=== PATIENT | female | born 1965 | race Caucasian/White ===

== ENCOUNTER → 2016-07-07 | Outpatient (CLI) | payer BC ==
--- NOTE | 2016-07-07 11:27 | RAD ---
EXAM: DIGITAL SCREEN BILAT W/CAD HISTORY: Routine Screening. COMPARISON: 06/17/2014 Standard mammographic views are obtained of the bilateral breasts. This study was interpreted with the benefit of Computerized Aided Detection (CAD). FINDINGS: The breast parenchyma shows scattered fibroglandular densities. Breast parenchyma level II. There is no definite new suspicious spiculated mass or worrisome new cluster of microcalcifications. IMPRESSION: No definite new suspicious mass. BI-RADS CATEGORY: 1 NEGATIVE RECOMMENDED FOLLOW-UP: 12M 12 MONTH FOLLOW-UP PQRS compliance statement: Patient information was entered into a reminder system with a target due date for the next mammogram. Mammography is a sensitive method for finding small breast cancers, but it does not detect them all and is not a substitute for careful clinical examination. A negative mammogram does not negate a clinically suspicious finding and should not result in delay in biopsying a clinically suspicious abnormality. "Our facility is accredited by the [employer] Mammography Program."
== END | disposition home or self-care (01) ==
LOC: MAMMO 08:03
PROVIDERS: ATTEND Family Medicine
DX: Z12.31 Encounter for screening mammogram for malignant neoplasm of breast (principal)
CPT/HCPCS: G0202; 77067

== ENCOUNTER 2017-03-09 22:24 | Inpatient (IN) | payer BC ==
[~2017-03-09] VITALS: Ht 170.2 cm; Wt 112.6 kg
[2017-03-09] MEDS ORDERED: IV NORMAL SALINE 1000ML BAG 1,000 ML IV ONE (23:00)
[2017-03-09] MEDS ORDERED: fentaNYL PF VIAL 100 MCG/2 ML VIAL IV ONE (23:15)
[2017-03-09] MEDS ORDERED: ONDANSETRON PF 4 MG/2 ML VIAL. IV ONE (23:15)
--- NOTE | 2017-03-09 23:18 | PHYS DOC ---
Past Medical History Past Medical History: Diabetes-Type II, High Cholesterol Past Surgical History: Hysterectomy, Other Additional Past Surgical Histo: five ABD surgeries Alcohol Use: Occasionally Drug Use: None Adult General Chief Complaint Chief Complaint: Congestion HPI HPI Patient is a 51 year old F who presents with right lower chest pain and right upper quadrant abdominal pain. Patient states the pain has been coming going for the past week however for the past 3 hours has been intense. Patient rates pain 10/10. Patient states nothing increases or decreases the pain. Patient denies any vomiting but is nauseous. Patient denies any fevers. Patient denies any diarrhea. Patient denies any other symptoms. Review of Systems Review of Systems GEN: Denies fevers, chills, sweats HEENT: Denies blurred vision, sore throat CV: Right lower chest pain RESP: Denies shortness of air, cough GI: Right upper quadrant pain with nausea NEURO: Denies confusion, dizziness MSK: Denies weakness, joint pain/swelling Current Medications Current Medications Current Medications Medications (Trade) Dose Ordered Sig/Sapna Start Time Stop Time Status Last Admin Dose Admin Fentanyl Citrate (Fentanyl 2ml Vial) 50 mcg 1X ONCE 03/09/17 23:15 03/09/17 23:16 DC 03/09/17 23:29 50 MCG Info (Do NOT chart on this entry -- for MONITORING) 1 each PRN DAILY PRN 03/10/17 02:00 03/12/17 01:59 Iohexol (Omnipaque 300 Mg/ml) 60 ml 1X ONCE 03/10/17 02:00 03/10/17 02:01 DC Ondansetron HCl (Zofran) 4 mg 1X ONCE 03/09/17 23:15 03/09/17 23:16 DC 03/09/17 23:28 4 MG Sodium Chloride 1,000 ml @ 1,000 mls/hr 1X ONCE 03/09/17 23:00 03/09/17 23:59 DC 03/09/17 23:27 1,000 MLS/HR Allergies Allergies Allergies Coded Allergies Type Severity Reaction Last Updated Verified Sulfa (Sulfonamide Antibiotics) Allergy Severe Swelling 03/09/17 Yes Physical Exam Physical Exam GEN.: Moderate distress. Alert and oriented. HEENT: Head is normocephalic, atraumatic NECK: Supple. LUNGS: CTAB. HEART: RRR, S1, S2 present. Peripheral pulses intact ABDOMEN: Soft, right upper quadrant tenderness to palpation, no rebound tenderness, voluntary guarding, no abdominal distention. Positive bowel sounds. EXTREMITIES: Without any cyanosis. NEUROLOGIC: Normal speech, normal tone PSYCHIATRIC: Normal affect, normal mood. SKIN: No ulcerations Current Patient Data Vital Signs Vital Signs Date Time Temp Pulse Resp B/P (MAP) Pulse Ox O2 Delivery O2 Flow Rate FiO2 03/09/17 23:29 16 96 Room Air 03/09/17 22:35 97.5 95 156/93 (114) 97.5 Lab Values Laboratory Tests Test 03/09/17 23:20 03/09/17 23:55 White Blood Count 12.8 x10^3/uL (4.0-11.0) H Red Blood Count 5.01 x10^6/uL (3.50-5.40) Hemoglobin 16.0 g/dL (12.0-15.5) H Hematocrit 47.1 % (36.0-47.0) H Mean Corpuscular Volume 94 fL (79-100) Mean Corpuscular Hemoglobin 32 pg (25-35) Mean Corpuscular Hemoglobin Concent 34 g/dL (31-37) Red Cell Distribution Width 13.0 % (11.5-14.5) Platelet Count 200 x10^3/uL (140-400) Neutrophils (%) (Auto) 59 % (31-73) Lymphocytes (%) (Auto) 28 % (24-48) Monocytes (%) (Auto) 10 % (0-9) H Eosinophils (%) (Auto) 2 % (0-3) Basophils (%) (Auto) 1 % (0-3) Neutrophils # (Auto) 7.5 x10^3uL (1.8-7.7) Lymphocytes # (Auto) 3.6 x10^3/uL (1.0-4.8) Monocytes # (Auto) 1.3 x10^3/uL (0.0-1.1) H Eosinophils # (Auto) 0.2 x10^3/uL (0.0-0.7) Basophils # (Auto) 0.1 x10^3/uL (0.0-0.2) Sodium Level 139 mmol/L (136-145) Potassium Level 3.6 mmol/L (3.5-5.1) Chloride Level 100 mmol/L (98-107) Carbon Dioxide Level 30 mmol/L (21-32) Anion Gap 9 (6-14) Blood Urea Nitrogen 20 mg/dL (7-20) Creatinine 1.0 mg/dL (0.6-1.0) Estimated GFR (Cockcroft-Gault) 58.0 BUN/Creatinine Ratio 20 (6-20) Glucose Level 132 mg/dL (70-99) H Calcium Level 9.7 mg/dL (8.5-10.1) Total Bilirubin 0.3 mg/dL (0.2-1.0) Aspartate Amino Transferase (AST) 19 U/L (15-37) Alanine Aminotransferase (ALT) 27 U/L (14-59) Alkaline Phosphatase 73 U/L (46-116) Troponin I Quantitative < 0.017 ng/mL (0.000-0.055) Total Protein 7.6 g/dL (6.4-8.2) Albumin 3.9 g/dL (3.4-5.0) Albumin/Globulin Ratio 1.1 (1.0-1.7) Lipase 349 U/L (73-393) Urine Collection Type Unknown Urine Color Yellow Urine Clarity Clear Urine pH 6.0 Urine Specific [place] <=1.005 Urine Protein Negative mg/dL (NEG-TRACE) Urine Glucose (UA) Negative mg/dL (NEG) Urine Ketones (Stick) Negative mg/dL (NEG) Urine Blood Negative (NEG) Urine Nitrite Negative (NEG) Urine Bilirubin Negative (NEG) Urine Urobilinogen Dipstick 0.2 mg/dL (0.2 mg/dL) Urine Leukocyte Esterase Negative (NEG) Urine RBC 0 /HPF (0-2) Urine WBC 1-4 /HPF (0-4) Urine Squamous Epithelial Cells Mod /LPF Urine Bacteria Moderate /HPF (0-FEW) Laboratory Tests 03/09/17 23:20 Laboratory Tests 03/09/17 23:20 EKG EKG 2247: EKG shows normal sinus rhythm rate of 86 no STEMI[] Radiology/Procedures Radiology/Procedures Ultrasound right upper quadrant: IMPRESSION: Probable fatty liver. At the central aspect left hepatic lobe there is a 3.5 cm oval nonshadowing hypoechoic focus, this could represent a region of focal fatty sparing versus a mass lesion. This could be definitively determined by outpatient MR imaging.[] CTA chest: IMPRESSION: No acute process. No pulmonary artery embolus. Left coronary calcified plaque. Chest x-ray NAD Course & Med Decision Making Course & Med Decision Making Pertinent Labs and Imaging studies reviewed. (See chart for details) ED course: Patient was seen and examined emergency room abdominal workup with an ultrasound right upper quadrant with troponin and EKG were ordered 0200: Patient's ultrasound or upper quadrant unremarkable we'll obtain a CTA of the chest 0322: Updated patient on CTA of the chest results and given the plaques in the left coronary will admit and trend her troponins and EKGs 0325: Discussed CC/HP/PMH with Dr. Anne and recommends admit [] MDM: After reviewing the chart, CC/HPI/PMH, physical exam, [lab results], [ radiological results], I do not believe the patient having a STEMI, PE, thoracic aortic dissection however the CTA of the chest shows plaques in the coronary arteries therefore will admit the patient for further cardiac workup. [] Dragon Disclaimer Dragon Disclaimer This electronic medical record was generated, in whole or in part, using a voice recognition dictation system. Departure Departure Impression: Primary Impression: Chest pain Additional Impression: CAD (coronary artery disease) Disposition: ADMITTED INPATIENT Admitting Physician: Tina Anne Condition: IMPROVED Referrals: TINA ANNE MD (PCP) Problem Qualifiers TASHA MARTINEZ DO Mar 09, 2017 23:18
[2017-03-09 23:25] LABS: BASO # 0.1 x10^3/uL (0.0-0.2); BASO % 1 % (0-3); EOS % 2 % (0-3); HEMATOCRIT 47.1 % (36.0-47.0); LYMPH # 3.6 x10^3/uL (1.0-4.8); LYMPH % 28 % (24-48); MEAN CORPUSCULAR HEMOGLOBIN 32 pg (25-35); MEAN CORPUSCULAR HGB CONC 34 g/dL (31-37); MEAN CORPUSCULAR VOLUME 94 fL (79-100); MONO % 10 % (0-9); NEUT % 59 % (31-73); PLATELET COUNT 200 x10^3/uL (140-400); RED BLOOD COUNT 5.01 x10^6/uL (3.50-5.40); WHITE BLOOD COUNT 12.8 x10^3/uL (4.0-11.0)
[2017-03-09 23:34] LABS: CALCIUM 9.7 mg/dL (8.5-10.1); POTASSIUM 3.6 mmol/L (3.5-5.1)
[2017-03-09 23:41] LABS: ALBUMIN 3.9 g/dL (3.4-5.0); ALBUMIN/GLOBULIN RATIO 1.1 (1.0-1.7); TOTAL BILIRUBIN 0.3 mg/dL (0.2-1.0); TOTAL PROTEIN 7.6 g/dL (6.4-8.2)
[2017-03-10 00:05] LABS: BILIRUBIN,URINE NEGATIVE (NEG); GLUCOSE,URINE NEGATIVE (NEG); NITRITE,URINE NEGATIVE (NEG); PROTEIN,URINE NEGATIVE (NEG-TRACE); UROBILINOGEN,URINE 0.2 mg/dL (0.2 mg/dL)
[2017-03-10 00:20] LABS: BACTERIA,URINE MODERATE /HPF (0-FEW); RBC,URINE 0 /HPF (0-2); SQUAMOUS EPITHELIAL CELL,UR MOD /LPF
--- NOTE | 2017-03-10 00:56 | RAD ---
Limited abdomen ultrasound HISTORY: Right upper quadrant abdominal pain. FINDINGS: Increased liver echogenicity likely fatty. Hypoechoic 3.5 cm lesion central left hepatic lobe. Limited visualization of the gallbladder no gross evidence of gallstones or inflammatory change. No biliary ductal dilation common bile duct diameter is 4 mm. Limited visualization of the aorta and IVC. Pancreas is unremarkable. Right renal length 11.7 cm shadowing from ribs limiting visualization of the upper pole, no evidence of right renal mass or hydronephrosis. Spleen and left kidney were not evaluated. IMPRESSION: Probable fatty liver. At the central aspect left hepatic lobe there is a 3.5 cm oval nonshadowing hypoechoic focus, this could represent a region of focal fatty sparing versus a mass lesion. This could be definitively determined by outpatient MR imaging. Electronically signed by: Mitch Mcclendon MD (03/10/2017 12:52 AM) [facility]
[2017-03-10] MEDS ORDERED: CONTRAST GIVEN MC PRN (02:00)
[2017-03-10] MEDS ORDERED: IOHEXOL 300 MG/ML 75 ML VIAL IV ONE (02:00)
--- NOTE | 2017-03-10 03:14 | RAD ---
CT angiography chest with contrast HISTORY: Chest pain TECHNIQUE: Helical CT imaging of the chest with multiplanar 3-D MIP reconstructed images of the pulmonary arteries assessment model 60 mL Omnipaque 300 intravenous contrast. FINDINGS: Left coronary calcified plaque. Heart size normal. Thoracic aorta and esophagus are unremarkable. No adenopathy in the chest. No pneumothorax, pulmonary opacities or pleural effusions. Bones are unremarkable. IMPRESSION: No acute process. No pulmonary artery embolus. Left coronary calcified plaque. Exposure: One or more of the following individualized dose reduction techniques were utilized for this examination: 1. Automated exposure control 2. Adjustment of the mA and/or kV according to patient size 3. Use of iterative reconstruction technique Electronically signed by: Mitch Mcclendon MD (03/10/2017 3:11 AM) [facility]
[2017-03-10] MEDS ORDERED: ONDANSETRON PF 4 MG/2 ML VIAL. IV PRN (03:30)
[2017-03-10] MEDS ORDERED: ACETAMINOPHEN 325 MG TABLET. PO PRN (03:30)
[2017-03-10] MEDS ORDERED: NITROGLYCERIN SUBLINGUAL 0.4 MG BOTTLE OF 25. SL PRN (03:30)
[2017-03-10] MEDS ORDERED: MORPHINE SULFATE 4 MG/ML DISP.SYRIN. IV PRN (03:30)
[2017-03-10 05:00] VITALS: BP 141/81
[2017-03-10] MEDS ORDERED: ASPI-482 PO (06:06)
[2017-03-10] MEDS ORDERED: PIOG45TA40 PO (06:06)
[2017-03-10] MEDS ORDERED: TRIA1CAP PO (06:06)
[2017-03-10] MEDS ORDERED: CRAN400C PO (06:06)
[2017-03-10] MEDS ORDERED: SIMV10TA3 PO (06:06)
--- NOTE | 2017-03-10 06:18 | EKG ---
[facility] [address] [place] [address] Test Date: 2017-03-09 Test Time: 22:47:31 Pat Name: CRISTIAN QUIROS Department: Room: Gender: F [employer]: : [id number] Requested By: TASHA MARTINEZ Order Number: [id number] Reading MD: Measurements Intervals [place] Rate: 86 P: 40 DC: 148 QRS: 13 QRSD: 82 T: 26 QT: 366 QTc: 441 Interpretive Statements SINUS RHYTHM NORMAL ECG RI6.01 No previous ECG available for comparison
[2017-03-10 07:00] VITALS: BP 180/78
--- NOTE | 2017-03-10 07:26 | RAD ---
Indication chest pain. Frontal and lateral views of the chest were obtained. No prior plain film imaging of the chest is available. The heart, pulmonary vessels and mediastinum appear normal. The lungs are clear. Bony structures appear intact. IMPRESSION: No acute or focal process is seen in the chest
--- NOTE | 2017-03-10 08:21 | PDOC ---
GENERAL General: see dictated H&P. Problems: VITAL SIGNS Vital Signs: Vital Signs Date Time Temp Pulse Resp B/P (MAP) Pulse Ox O2 Delivery O2 Flow Rate FiO2 03/10/17 07:00 97.9 92 20 180/78 (112) 93 Room Air 97.9 ALLERGIES Allergies: Allergies Coded Allergies Type Severity Reaction Last Updated Verified Sulfa (Sulfonamide Antibiotics) Allergy Severe Swelling 03/09/17 Yes MEDS Medications: Current Medications Medications (Trade) Dose Ordered Sig/Sapna Start Time Stop Time Status Last Admin Dose Admin Acetaminophen (Tylenol) 650 mg PRN Q4HRS PRN 03/10/17 03:30 03/11/17 03:29 Fentanyl Citrate (Fentanyl 2ml Vial) 50 mcg 1X ONCE 03/09/17 23:15 03/09/17 23:16 DC 03/09/17 23:29 50 MCG Info (Do NOT chart on this entry -- for MONITORING) 1 each PRN DAILY PRN 03/10/17 02:00 03/12/17 01:59 Iohexol (Omnipaque 300 Mg/ml) 60 ml 1X ONCE 03/10/17 02:00 03/10/17 02:01 DC Morphine Sulfate 4 mg PRN Q2HR PRN 03/10/17 03:30 03/11/17 03:29 Nitroglycerin (Nitrostat) 0.4 mg PRN Q5MIN PRN 03/10/17 03:30 03/11/17 03:29 Ondansetron HCl (Zofran) 4 mg PRN Q8HRS PRN 03/10/17 03:30 03/11/17 03:29 Sodium Chloride 1,000 ml @ 1,000 mls/hr 1X ONCE 03/09/17 23:00 03/09/17 23:59 DC 03/09/17 23:27 1,000 MLS/HR LAB Lab: Laboratory Tests Test 03/09/17 23:20 03/09/17 23:55 03/10/17 07:25 White Blood Count 12.8 x10^3/uL (4.0-11.0) Red Blood Count 5.01 x10^6/uL (3.50-5.40) Hemoglobin 16.0 g/dL (12.0-15.5) Hematocrit 47.1 % (36.0-47.0) Mean Corpuscular Volume 94 fL (79-100) Mean Corpuscular Hemoglobin 32 pg (25-35) Mean Corpuscular Hemoglobin Concent 34 g/dL (31-37) Red Cell Distribution Width 13.0 % (11.5-14.5) Platelet Count 200 x10^3/uL (140-400) Neutrophils (%) (Auto) 59 % (31-73) Lymphocytes (%) (Auto) 28 % (24-48) Monocytes (%) (Auto) 10 % (0-9) Eosinophils (%) (Auto) 2 % (0-3) Basophils (%) (Auto) 1 % (0-3) Neutrophils # (Auto) 7.5 x10^3uL (1.8-7.7) Lymphocytes # (Auto) 3.6 x10^3/uL (1.0-4.8) Monocytes # (Auto) 1.3 x10^3/uL (0.0-1.1) Eosinophils # (Auto) 0.2 x10^3/uL (0.0-0.7) Basophils # (Auto) 0.1 x10^3/uL (0.0-0.2) Sodium Level 139 mmol/L (136-145) Potassium Level 3.6 mmol/L (3.5-5.1) Chloride Level 100 mmol/L (98-107) Carbon Dioxide Level 30 mmol/L (21-32) Anion Gap 9 (6-14) Blood Urea Nitrogen 20 mg/dL (7-20) Creatinine 1.0 mg/dL (0.6-1.0) Estimated GFR (Cockcroft-Gault) 58.0 BUN/Creatinine Ratio 20 (6-20) Glucose Level 132 mg/dL (70-99) Calcium Level 9.7 mg/dL (8.5-10.1) Total Bilirubin 0.3 mg/dL (0.2-1.0) Aspartate Amino Transf (AST/SGOT) 19 U/L (15-37) Alanine Aminotransferase (ALT/SGPT) 27 U/L (14-59) Alkaline Phosphatase 73 U/L (46-116) Troponin I Quantitative < 0.017 ng/mL (0.000-0.055) Total Protein 7.6 g/dL (6.4-8.2) Albumin 3.9 g/dL (3.4-5.0) Albumin/Globulin Ratio 1.1 (1.0-1.7) Lipase 349 U/L (73-393) Urine Collection Type Unknown Urine Color Yellow Urine Clarity Clear Urine pH 6.0 Urine Specific [place] <=1.005 Urine Protein Negative mg/dL (NEG-TRACE) Urine Glucose (UA) Negative mg/dL (NEG) Urine Ketones (Stick) Negative mg/dL (NEG) Urine Blood Negative (NEG) Urine Nitrite Negative (NEG) Urine Bilirubin Negative (NEG) Urine Urobilinogen Dipstick 0.2 mg/dL (0.2 mg/dL) Urine Leukocyte Esterase Negative (NEG) Urine RBC 0 /HPF (0-2) Urine WBC 1-4 /HPF (0-4) Urine Squamous Epithelial Cells Mod /LPF Urine Bacteria Moderate /HPF (0-FEW) Glucose (Fingerstick) 122 mg/dL (70-99) TINA ANNE MD Mar 10, 2017 08:21
[2017-03-10] MEDS ORDERED: fentaNYL PF VIAL 100 MCG/2 ML VIAL IV PRN (08:30)
--- NOTE | 2017-03-10 09:06 | HP ---
ADMIT DATE: 03/10/2017 CHIEF COMPLAINT AND HISTORY OF PRESENT ILLNESS: This 51-year-old white female who is well known to me from followup in the office. The patient had the onset of some right lower chest, right upper quadrant pain, actually starting the Monday prior to this admission, it got very severe on evening prior to admission, presenting to the Emergency Room where she had workup in the Emergency Room including a chest x-ray that was unremarkable and CTA of the chest that was unremarkable. Ultrasound of the abdomen showing a possible left hepatic lobe lesion and no definite etiology for pain. She describes it as worse with movement as well as breath, described as sharp in nature and sounds pleuritic. She has had a negative troponin since admission and has had no real other GI symptoms such as nausea, vomiting, diarrhea, constipation associated with this. PAST MEDICAL HISTORY: Remarkable hyperlipidemia, diabetes. PAST SURGICAL HISTORY: Remarkable for hysterectomy and other abdominal surgeries. MEDICATIONS: Brought with the patient, listed on the computer and have been addressed. ALLERGIES: SHE IS ALLERGIC TO SULFA. SOCIAL HISTORY: She is a smoker, nondrinker, does not use drugs. , lives at home with her , works on a regular basis. FAMILY HISTORY: Noncontributory. REVIEW OF SYSTEMS: As mentioned above. PHYSICAL EXAMINATION: GENERAL: She is a well-developed, well-nourished white female, in no acute distress, lying in bed. VITAL SIGNS: Stable. She is afebrile, blood pressures obtained and somewhat high. HEAD, EYES, EARS, NOSE AND THROAT: Remarkable for glasses. NECK: Supple, without adenopathy or thyromegaly. CHEST: Clear to auscultation and percussion. She does have pain with the breath. There are no chest wall or abdominal wall rashes present. HEART: Regular rate and rhythm without S3, S4, murmur or rub. ABDOMEN: Soft, nontender, without hepatosplenomegaly or masses. EXTREMITIES: Without cyanosis, clubbing or edema. NEUROLOGIC: She is intact. IMPRESSION: Right chest/abdominal pain of a pleuritic type nature of uncertain etiology. PLAN: The patient has been admitted. I am going to start prednisone for the pain to see if this would help as the day goes on. I have asked GI to see her regarding the liver lesion and the pain and the patient will be monitored, managed and treated appropriately. TINA ANNE MD DR: Parish JOB#: [id number] / [id number]
[2017-03-10] MEDS: predniSONE 10 MG TABLET PO SCH (09:51)
[2017-03-10] MEDS: ASPIRIN ENTERIC COATED 81 MG TABLET.DR. PO SCH (09:52)
[2017-03-10] MEDS: PIOGLITAZONE 15 MG TABLET. PO SCH (09:52)
[2017-03-10] MEDS: TRIAMTERENE/HCTZ 37.5/25MG TABLET. PO SCH (09:52)
--- NOTE | 2017-03-10 10:19 | PDOC2 ---
GI CONSULT Reason For Consult: RUQ pain HPI: HPI: 51 y/o female admitted through the ER. H/o right-sided pain since cleaning her car on 03/05/17. Pain is worse w/ movement and w/ coughing (sometimes productive w/ clear/yellow phlegm). Denies n/v, dysphagia, diarrhea, constipation, change in appetite, bleeding, and weight loss. Has tried Motrin 800mg QD since Monday. Also takes daily ASA. Had a little reflux yesterday, unusual for her. No previous EGD. Two previous colonoscopies w/ Dr. Mcnulty in 2002 and 2014, both normal. No h/o liver, gallbladder, or pancreas issues. Labs w/ WBC 12.8, Hgb 16. RUQ US w/ probably fatty liver and left hepatic lobe lesion (fatty sparing vs mass), MRI suggested. CXR and chest CTA unrevealing for acute issue. Cardiology has been asked to see. PMH: PMH: HTN, HLD, DM, total hysterectomy, bladder suspension, bilateral cataract extraction FH: Family History: No pertinent hx (denies GI cancers) Social History: Smoke: 1 pack per day ALCOHOL: rare Drugs: None ROS: GEN: Denies fevers, chills, sweats HEENT: Denies blurred vision, sore throat CV: Denies chest pain RESP: +cough GI: Per HPI : Denies hematuria, dysuria ENDO: Denies weight changes NEURO: Denies confusion, dizziness MSK: +right side pain SKIN: Denies jaundice, pruritus Vitals: Vitals: Vital Signs Date Time Temp Pulse Resp B/P (MAP) Pulse Ox O2 Delivery O2 Flow Rate FiO2 03/10/17 07:00 97.9 92 20 180/78 (112) 93 Room Air 97.9 Labs: Labs: Laboratory Tests Test 03/09/17 23:20 03/09/17 23:55 03/10/17 07:25 White Blood Count 12.8 x10^3/uL (4.0-11.0) Red Blood Count 5.01 x10^6/uL (3.50-5.40) Hemoglobin 16.0 g/dL (12.0-15.5) Hematocrit 47.1 % (36.0-47.0) Mean Corpuscular Volume 94 fL (79-100) Mean Corpuscular Hemoglobin 32 pg (25-35) Mean Corpuscular Hemoglobin Concent 34 g/dL (31-37) Red Cell Distribution Width 13.0 % (11.5-14.5) Platelet Count 200 x10^3/uL (140-400) Neutrophils (%) (Auto) 59 % (31-73) Lymphocytes (%) (Auto) 28 % (24-48) Monocytes (%) (Auto) 10 % (0-9) Eosinophils (%) (Auto) 2 % (0-3) Basophils (%) (Auto) 1 % (0-3) Neutrophils # (Auto) 7.5 x10^3uL (1.8-7.7) Lymphocytes # (Auto) 3.6 x10^3/uL (1.0-4.8) Monocytes # (Auto) 1.3 x10^3/uL (0.0-1.1) Eosinophils # (Auto) 0.2 x10^3/uL (0.0-0.7) Basophils # (Auto) 0.1 x10^3/uL (0.0-0.2) Sodium Level 139 mmol/L (136-145) Potassium Level 3.6 mmol/L (3.5-5.1) Chloride Level 100 mmol/L (98-107) Carbon Dioxide Level 30 mmol/L (21-32) Anion Gap 9 (6-14) Blood Urea Nitrogen 20 mg/dL (7-20) Creatinine 1.0 mg/dL (0.6-1.0) Estimated GFR (Cockcroft-Gault) 58.0 BUN/Creatinine Ratio 20 (6-20) Glucose Level 132 mg/dL (70-99) Calcium Level 9.7 mg/dL (8.5-10.1) Total Bilirubin 0.3 mg/dL (0.2-1.0) Aspartate Amino Transf (AST/SGOT) 19 U/L (15-37) Alanine Aminotransferase (ALT/SGPT) 27 U/L (14-59) Alkaline Phosphatase 73 U/L (46-116) Troponin I Quantitative < 0.017 ng/mL (0.000-0.055) Total Protein 7.6 g/dL (6.4-8.2) Albumin 3.9 g/dL (3.4-5.0) Albumin/Globulin Ratio 1.1 (1.0-1.7) Lipase 349 U/L (73-393) Urine Collection Type Unknown Urine Color Yellow Urine Clarity Clear Urine pH 6.0 Urine Specific [place] <=1.005 Urine Protein Negative mg/dL (NEG-TRACE) Urine Glucose (UA) Negative mg/dL (NEG) Urine Ketones (Stick) Negative mg/dL (NEG) Urine Blood Negative (NEG) Urine Nitrite Negative (NEG) Urine Bilirubin Negative (NEG) Urine Urobilinogen Dipstick 0.2 mg/dL (0.2 mg/dL) Urine Leukocyte Esterase Negative (NEG) Urine RBC 0 /HPF (0-2) Urine WBC 1-4 /HPF (0-4) Urine Squamous Epithelial Cells Mod /LPF Urine Bacteria Moderate /HPF (0-FEW) Glucose (Fingerstick) 122 mg/dL (70-99) Allergies: Coded Allergies: Sulfa (Sulfonamide Antibiotics) (Verified Allergy, Severe, Swelling, 03/09) ankle swells Medications: Current Medications Medications (Trade) Dose Ordered Sig/Sapna Route PRN Reason Start Time Stop Time Status Last Admin Dose Admin Ondansetron HCl (Zofran) 4 mg 1X ONCE IV 03/09/17 23:15 03/09/17 23:16 DC 03/09/17 23:28 Sodium Chloride 1,000 ml @ 1,000 mls/hr 1X ONCE IV 03/09/17 23:00 03/09/17 23:59 DC 03/09/17 23:27 Fentanyl Citrate (Fentanyl 2ml Vial) 50 mcg 1X ONCE IV 03/09/17 23:15 03/09/17 23:16 DC 03/09/17 23:29 Prednisone (Prednisone) 40 mg DAILY PO 03/10/17 09:00 03/10/17 09:51 Aspirin (Ecotrin) 81 mg DAILY08 PO 03/10/17 09:00 03/10/17 09:52 Pioglitazone HCl (Actos) 30 mg DAILY PO 03/10/17 09:30 03/10/17 09:52 Triamterene/HCTZ (Maxzide 37.5/ 25mg) 2 tab DAILY PO 03/10/17 09:30 03/10/17 09:52 Imaging: Imaging: Abd US 03/09/17 FINDINGS: Increased liver echogenicity likely fatty. Hypoechoic 3.5 cm lesion central left hepatic lobe. Limited visualization of the gallbladder no gross evidence of gallstones or inflammatory change. No biliary ductal dilation common bile duct diameter is 4 mm. Limited visualization of the aorta and IVC. Pancreas is unremarkable. Right renal length 11.7 cm shadowing from ribs limiting visualization of the upper pole, no evidence of right renal mass or hydronephrosis. Spleen and left kidney were not evaluated. IMPRESSION: Probable fatty liver. At the central aspect left hepatic lobe there is a 3.5 cm oval nonshadowing hypoechoic focus, this could represent a region of focal fatty sparing versus a mass lesion. This could be definitively determined by outpatient MR imaging. CXR 03/09/17 IMPRESSION: No acute or focal process is seen in the chest. Chest CTA IMPRESSION: No acute process. No pulmonary artery embolus. Left coronary calcified plaque. PE: GEN: NAD HEENT: Atraumatic, PERRL LUNGS: clear anteriorly HEART: RRR ABD: NABS, S/ND/NT - pain located over right ribs, lateral to breast EXTREMITY: No edema SKIN: No rashes, no jaundice NEURO/PSYCH: A & O 3, drowsy A/P: A/P: Right-sided pain Cough, on prednisone Abnormal RUQ US w/ possible liver lesion Acid reflux, recent NSAID use CRC screen (up to date) -- Pain seems MSK, not clearly GI-related. Check MR abd - RN called and said possibly won't be done today, machine going down at noon. Add PPI. ASHLEY HENDERSON Mar 10, 2017 10:19
[2017-03-10] MEDS: NICOTINE 21MG PATCH. TD SCH (10:26)
[2017-03-10] MEDS: PANTOPRAZOLE 40 MG TABLET.DR. PO SCH (10:29)
--- NOTE | 2017-03-10 10:34 | PDOC2 ---
ASHWINI DENNIS JUNIOR ENGINEER 03/10/17 1034: CARDIAC CONSULT DATE OF CONSULT Date of Consult DATE: 03/10/17 TIME: 10:23 REASON FOR CONSULT Reason for Consult: CP REFERRING PHYSICIAN Referring Physician: Omar SOURCE Source: Chart review, Patient HISTORY OF PRESENT ILLNESS HISTORY OF PRESENT ILLNESS This is a pleasant 51 yo female admitted for complains of right side chest pain , sharp in consitency and reproducible with cough, palpation and positional changes. Reports no nausea but it does affect her breathing when taking a deep breath. Reports of intermittent and intractable coughing sometimes in the last 2 months. Mainly exacerbated when their windows were open at home with likely ragweed allergy. She does however smoke tobacco as well but denies any hx of asthma or COPD. Verbalized multiple hernia repair and throat irritation and NSAID use. Denies any recent falls, injury, CAD, VTE or any recent heavy lifting. Denies any fever or chills. Her mobility is limited and unable to lift anything heavy due to her hernia. No exertional CP nor SOA. PAST MEDICAL HISTORY Cardiovascular: HTN, Hyperlipidemia Pulmonary: No pertinent hx CENTRAL NERVOUS SYSTEM: Other (No pertinent history) GI: GERD Heme/Onc: No pertinent hx Hepatobiliary: No pertinent hx Psych: No pertinent hx Musculoskeletal: Other (None) Rheumatologic: No pertinent hx Infectious disease: No pertinent hx ENT: No pertinent hx Renal/: No pertinent hx Endocrine: Diabetes (2) Dermatology: No pertinent hx PAST SURGICAL HISTORY Past Surgical History: Cataract Removal, Hernia Repair (multiple), Hysterectomy FAMILY HISTORY Family History: Coronary Artery Disease (father) SOCIAL HISTORY Smoke: <1 pack per day ALCOHOL: none Drugs: None Lives: with Family CURRENT MEDICATIONS CURRENT MEDICATIONS Current Medications Medications (Trade) Dose Ordered Sig/Sapna Route PRN Reason Start Time Stop Time Status Last Admin Dose Admin Ondansetron HCl (Zofran) 4 mg 1X ONCE IV 03/09/17 23:15 03/09/17 23:16 DC 03/09/17 23:28 Sodium Chloride 1,000 ml @ 1,000 mls/hr 1X ONCE IV 03/09/17 23:00 03/09/17 23:59 DC 03/09/17 23:27 Fentanyl Citrate (Fentanyl 2ml Vial) 50 mcg 1X ONCE IV 03/09/17 23:15 03/09/17 23:16 DC 03/09/17 23:29 Prednisone (Prednisone) 40 mg DAILY PO 03/10/17 09:00 03/10/17 09:51 Aspirin (Ecotrin) 81 mg DAILY08 PO 03/10/17 09:00 03/10/17 09:52 Pioglitazone HCl (Actos) 30 mg DAILY PO 03/10/17 09:30 03/10/17 09:52 Triamterene/HCTZ (Maxzide 37.5/ 25mg) 2 tab DAILY PO 03/10/17 09:30 03/10/17 09:52 ALLERGIES ALLERGIES: Coded Allergies: Sulfa (Sulfonamide Antibiotics) (Verified Allergy, Severe, Swelling, 03/09) ankle swells ROS Review of System 14 point ROS evaluated with pertinent positives noted per HPI PHYSICAL EXAM General: Alert, Oriented X3, Cooperative, No acute distress HEENT: Atraumatic, Mucous membr. moist/pink Lungs: Clear to auscultation, Normal air movement Heart: Regular rate (SR), Normal S1, Normal S2, No murmurs Abdomen: Soft, No tenderness Extremities: No cyanosis, No edema Skin: No breakdown, No significant lesion Neuro: Normal speech, Sensation intact Psych/Mental Status: Mood NL MUSCULOSKELETAL: Full range of motion without pain VITALS VITALS Vital Signs Date Time Temp Pulse Resp B/P (MAP) Pulse Ox O2 Delivery O2 Flow Rate FiO2 03/10/17 07:00 97.9 92 20 180/78 (112) 93 Room Air 97.9 LABS Lab: Laboratory Tests Test 03/09/17 23:20 03/09/17 23:55 03/10/17 07:25 03/10/17 09:15 White Blood Count 12.8 x10^3/uL (4.0-11.0) Red Blood Count 5.01 x10^6/uL (3.50-5.40) Hemoglobin 16.0 g/dL (12.0-15.5) Hematocrit 47.1 % (36.0-47.0) Mean Corpuscular Volume 94 fL (79-100) Mean Corpuscular Hemoglobin 32 pg (25-35) Mean Corpuscular Hemoglobin Concent 34 g/dL (31-37) Red Cell Distribution Width 13.0 % (11.5-14.5) Platelet Count 200 x10^3/uL (140-400) Neutrophils (%) (Auto) 59 % (31-73) Lymphocytes (%) (Auto) 28 % (24-48) Monocytes (%) (Auto) 10 % (0-9) Eosinophils (%) (Auto) 2 % (0-3) Basophils (%) (Auto) 1 % (0-3) Neutrophils # (Auto) 7.5 x10^3uL (1.8-7.7) Lymphocytes # (Auto) 3.6 x10^3/uL (1.0-4.8) Monocytes # (Auto) 1.3 x10^3/uL (0.0-1.1) Eosinophils # (Auto) 0.2 x10^3/uL (0.0-0.7) Basophils # (Auto) 0.1 x10^3/uL (0.0-0.2) Sodium Level 139 mmol/L (136-145) Potassium Level 3.6 mmol/L (3.5-5.1) Chloride Level 100 mmol/L (98-107) Carbon Dioxide Level 30 mmol/L (21-32) Anion Gap 9 (6-14) Blood Urea Nitrogen 20 mg/dL (7-20) Creatinine 1.0 mg/dL (0.6-1.0) Estimated GFR (Cockcroft-Gault) 58.0 BUN/Creatinine Ratio 20 (6-20) Glucose Level 132 mg/dL (70-99) Calcium Level 9.7 mg/dL (8.5-10.1) Total Bilirubin 0.3 mg/dL (0.2-1.0) Aspartate Amino Transf (AST/SGOT) 19 U/L (15-37) Alanine Aminotransferase (ALT/SGPT) 27 U/L (14-59) Alkaline Phosphatase 73 U/L (46-116) Troponin I Quantitative < 0.017 ng/mL (0.000-0.055) < 0.017 ng/mL (0.000-0.055) Total Protein 7.6 g/dL (6.4-8.2) Albumin 3.9 g/dL (3.4-5.0) Albumin/Globulin Ratio 1.1 (1.0-1.7) Lipase 349 U/L (73-393) Urine Collection Type Unknown Urine Color Yellow Urine Clarity Clear Urine pH 6.0 Urine Specific Gautier <=1.005 Urine Protein Negative mg/dL (NEG-TRACE) Urine Glucose (UA) Negative mg/dL (NEG) Urine Ketones (Stick) Negative mg/dL (NEG) Urine Blood Negative (NEG) Urine Nitrite Negative (NEG) Urine Bilirubin Negative (NEG) Urine Urobilinogen Dipstick 0.2 mg/dL (0.2 mg/dL) Urine Leukocyte Esterase Negative (NEG) Urine RBC 0 /HPF (0-2) Urine WBC 1-4 /HPF (0-4) Urine Squamous Epithelial Cells Mod /LPF Urine Bacteria Moderate /HPF (0-FEW) Glucose (Fingerstick) 122 mg/dL (70-99) ASSESSMENT/PLAN ASSESSMENT/PLAN 1. CP: RUQ and right ribcage region. Possible intercostitis. Pleuritic with continued episodes of intractable coughing likely exacerbated by GERD, environmental allergy and tobacco. Noncardiac. 2. HTN: labile, defer to PCP 3. DM2/HLP/DICKENS 4. Morbid obesity 5. Tobaccoism Recommendations 1. No cardiac testing at this time. I did discussed with her symptoms of CAD and if any progression of her symptoms when DC then will consider for outpt stress testing. 2. Continue with secondary prevention. 3. Smoking cessation Problems: MARILU BROWN MD 03/10/17 1609: CARDIAC CONSULT ALLERGIES ALLERGIES: Coded Allergies: Sulfa (Sulfonamide Antibiotics) (Verified Allergy, Severe, Swelling, 03/09) ankle swells ASSESSMENT/PLAN ASSESSMENT/PLAN Pt. seen and examined. Agree with above TIRE RECAPPER note. Non-cardiac chest pain. Mild coronary plaque on CT scan of chest - continue risk factor modificaiton. Will f/u on outpt basis for consideration of stress testing if necessary based on symptoms. Thanks for consult, Pls call with questions. Problems: ASHWINI DENNIS APRN Mar 10, 2017 10:34 MARILU BROWN MD Mar 10, 2017 16:09
[2017-03-10 11:06] VITALS: BP 120/68
[2017-03-10] MEDS ORDERED: GADOBUTROL 10 MMOL/10 ML VIAL IV ONE (11:45)
[2017-03-10 14:49] VITALS: BP 109/59
--- NOTE | 2017-03-10 16:36 | RAD ---
MRI abdomen with and without contrast: Clinical indications: Right-sided abdominal pain. Abnormal ultrasound.. 3.5 cm hypoechoic focus involving the posterior aspect of the left lobe of the liver. Technique: T1 and T2 weighted MRI sequences of the abdomen was performed in the axial and coronal planes. In phase and out of phase MRI sequences were performed as well. After IV infusion of 10 mL of Gadavist, postcontrast enhanced T1-weighted MRI sequences of the abdomen were performed. Comparison: Sonogram of the abdomen dated March 10, 2017. Findings: Geographic fatty infiltration of the liver is seen. The finding seen on sonography represents focal fatty sparing. No hepatic mass is seen. The spleen is homogeneous in appearance and not enlarged. The pancreas is homogeneous in appearance. The gallbladder appears normal. No abnormal dilatation of the intrahepatic or extrahepatic biliary tree is seen. No adrenal mass is evident. Small bilateral nonenhancing renal cysts are seen. No focal aneurysmal dilatation of the abdominal aorta is seen. No enlarged abdominal lymphadenopathy is seen. No ascites is seen.. IMPRESSION: Geographic fatty infiltration of the liver. The finding seen on sonography represents focal fatty sparing of the liver. No hepatic mass is seen.
[2017-03-10 19:59] VITALS: BP 132/80
[2017-03-10] MEDS ORDERED: SIMVASTATIN 10 MG TABLET PO SCH (21:00)
[2017-03-10 23:41] VITALS: BP 134/73
[2017-03-11 03:32] VITALS: BP 114/70
[2017-03-11 07:00] VITALS: BP 129/72
[2017-03-11] MEDS: TRIAMTERENE/HCTZ 37.5/25MG TABLET. PO SCH (09:01)
[2017-03-11] MEDS: PANTOPRAZOLE 40 MG TABLET.DR. PO SCH (09:02)
[2017-03-11] MEDS: PIOGLITAZONE 15 MG TABLET. PO SCH (09:02)
[2017-03-11] MEDS: NICOTINE 21MG PATCH. TD SCH (09:03)
[2017-03-11] MEDS: predniSONE 10 MG TABLET PO SCH (09:03)
[2017-03-11] MEDS: ASPIRIN ENTERIC COATED 81 MG TABLET.DR. PO SCH (09:04)
[2017-03-11] MEDS ORDERED: [UNRECOGNIZED DRUG - CODE] TOP (09:43)
[2017-03-11] MEDS ORDERED: CLOB50SO2 TOP (09:43)
[2017-03-11] MEDS ORDERED: POTA20TA84 PO (09:43)
[2017-03-11] MEDS ORDERED: TRIA1CAP3 (09:43)
[2017-03-11] MEDS ORDERED: FLUO118.2 TOP (09:43)
[2017-03-11] MEDS ORDERED: TACR30OI4 (09:43)
[2017-03-11] MEDS ORDERED: METH1TAB7 (09:43)
[2017-03-11] MEDS ORDERED: ESTR1PAT77 (09:43)
[2017-03-11] MEDS ORDERED: SIMV40TA3 (09:43)
[2017-03-11] MEDS ORDERED: PIOG30TA3 (09:43)
[2017-03-11] MEDS ORDERED: NITR100C6 (09:43)
[2017-03-11] MEDS ORDERED: POTA20TA84 (09:43)
[2017-03-11] MEDS ORDERED: OMEP40CA5 (09:43)
[2017-03-11 10:43] VITALS: BP 119/76
[2017-03-11] MEDS ORDERED: PRED-220 PO (13:05)
[2017-03-11] MEDS ORDERED: MELO15TA6 PO (13:05)
--- NOTE | 2017-03-11 13:11 | PDOC ---
SUBJECTIVE Subjective pain RUQ 4/10 , present but not bad , worse with cough or deep breathing, MRI noted discussed with pt , steroid seems helping OBJECTIVE Vital Signs Vital Signs Date Time Temp Pulse Resp B/P (MAP) Pulse Ox O2 Delivery O2 Flow Rate FiO2 03/11/17 10:43 97.6 82 18 119/76 (90) 94 Room Air 97.6 03/11/17 07:00 97.5 84 18 129/72 (91) 96 Room Air 97.5 03/11/17 03:32 98.4 80 18 114/70 (85) 94 Room Air 98.4 03/10/17 23:41 98.4 85 18 134/73 (93) 94 Room Air 98.4 03/10/17 20:00 Room Air 03/10/17 19:59 97.5 85 18 132/80 (97) 95 Room Air 97.5 03/10/17 14:49 97.9 94 20 109/59 (76) 93 Room Air 97.9 PHYSICAL EXAM Physical Exam lungs clear heart RRR abd soft no pain RUQ with palpation + BS ext no edema ASSESSMENT/PLAN Assessment/Plan plan home today on steroid and NSAID f/u out pt Problems: COMMENT Lab Laboratory Tests Test 03/10/17 15:15 03/10/17 16:34 03/10/17 21:30 03/11/17 06:59 Troponin I Quantitative < 0.017 ng/mL (0.000-0.055) Glucose (Fingerstick) 171 mg/dL (70-99) 186 mg/dL (70-99) 123 mg/dL (70-99) Test 03/11/17 11:21 Glucose (Fingerstick) 144 mg/dL (70-99) TRACI HAHN MD Mar 11, 2017 13:11
--- NOTE | 2017-03-11 13:16 | PDOC3 ---
Discharge Summary* Date of Admission: Mar 09, 2017 Date of Discharge: Mar 11, 2017 Admitting Diagnosis Problems Medical Problems: (1) CAD (coronary artery disease) Status: Acute (2) Chest pain Status: Acute Problems: Final Diagnosis 1- RUQ pleretic pain due to pleresy 2-Chest pain due to #1 3-DM II 4-obesity and fatty infiltration of liver 5-HTN 6-HLD 7-allergies and posible COPD/Asthma causing cough consider inhaled steroid after course of steroid po 8-smoker advised to stop Problems Medical Problems: (1) CAD (coronary artery disease) Status: Acute (2) Chest pain Status: Acute CONSULTS cardiology, GI Procedures CXR, CT chest no PE, abd US, MRI liver , serial cardiac enzymes and EKG Brief Hospital Course Ms. Naik is a 51 old [sex] who presented with [ ] Disposition/Orders: D/C to Home CONDITION AT DISCHARGE: Improved Diet: Cardiac, Consistent Carbohydrate Scheduled Meloxicam (Mobic), 1 TAB PO DAILY Omeprazole (Omeprazole), 1 DAILY, (Reported) Pioglitazone Hcl (Actos), 40 MG PO DAILY, (Reported) Pioglitazone Hcl (Pioglitazone Hcl), 1 DAILY, (Reported) Potassium Chloride (K-Tab ER), 1 DAILY, (Reported) Potassium Chloride (K-Tab ER), 20 MEQ PO DAILY, (Reported) Prednisone (Prednisone), 10 MG PO UD Simvastatin (Simvastatin), 10 MG PO HS, (Reported) Triamterene/Hydrochlorothiazid (Dyazide 37.5-25 Capsule), 2 CAP PO DAILY, ( Reported) Triamterene/Hydrochlorothiazid (Triamterene-Hctz 37.5-25 Mg Cp), 1 DAILY, ( Reported) Scheduled PRN Clobetasol Propionate (Clobetasol Propionate), 1 TOP PRN PRN for ITCHING, ( Reported) Methen/Sod Phos/Meth Blue/Hyos (Urogesic-Blue Tablet), 1 DAILY PRN for bladder pain, (Reported) Nitrofurantoin Monohyd/M-Cryst (Nitrofurantoin [place]-Mcr 100 Mg), 1 PRN PRN for BLADDER SPASM, (Reported) Tacrolimus (Tacrolimus), 1 PRN PRN for ITCHING, (Reported) Miscellaneous Medications Aspirin (Aspir 81), 81 MG PO, (Reported) Ciclopirox (Ciclopirox), 1 TOP, (Reported) Cranberry (Cranberry), 4,600 MG PO, (Reported) Estradiol (Minivelle), 1, (Reported) Simvastatin (Simvastatin), 40, (Reported) Durable Medical Equipment Fluocinolone/Shower Cap (Fluocinolone 0.01% Scalp Oil), TOP PRN PRN for ITCHING, (Reported), (DME) FOLLOW UP APPOINTMENT: DR. Amador 1 week Time Spent Total time spent with patient [] minutes for coordination of care, counseling, and education. TRACI HAHN MD Mar 11, 2017 13:16
== END 2017-03-11 14:03 | disposition home or self-care (01) | DRG 313 ==
LOC: ER 22:24 → 5 NORTH 03-10 03:25
PROVIDERS: ADMIT Family Medicine; ATTEND Family Medicine
DX: R07.89 Other chest pain (principal); I25.10 Atherosclerotic heart disease of native coronary artery without angina pectoris; E66.01 Morbid (severe) obesity due to excess calories; E11.9 Type 2 diabetes mellitus without complications; Z68.38 Body mass index [BMI] 38.0-38.9, adult; E78.5 Hyperlipidemia, unspecified; F17.210 Nicotine dependence, cigarettes, uncomplicated; I10 Essential (primary) hypertension; J44.9 Chronic obstructive pulmonary disease, unspecified; K21.9 Gastro-esophageal reflux disease without esophagitis; Z82.49 Family history of ischemic heart disease and other diseases of the circulatory system; Z98.41 Cataract extraction status, right eye; Z98.42 Cataract extraction status, left eye; Z88.2 Allergy status to sulfonamides; Z90.710 Acquired absence of both cervix and uterus
CPT/HCPCS: 36415; 71020; 71275; 74183; 76705; 80053; 81001; 82962; 83690; 84484; 85025; 87086; 93005; 96361; 96374; 96375; A9585; J2405; J3010; J7030; J7512; 99285-25

== ENCOUNTER → 2020-05-28 | Outpatient (CLI) | payer BC ==
[~2020-05-28] MED LIST: ASPI-482 PO; CLOB50SO2 TOP; CRAN400C PO; ESTR1PAT77; FLUO118.2 TOP; MELO15TA6 PO; METH1TAB7; NITR100C6; OMEP40CA45; PIOG30TA62; PIOG45TA40 PO; POTA20TA84; POTA20TA84 PO; PRED-220 PO; SIMV10TA15 PO; SIMV40TA18; TACR30OI4; TRIA1CAP PO; TRIA1CAP3; [UNRECOGNIZED DRUG - CODE] TOP
--- NOTE | 2020-05-28 14:18 | KCIC ---
Examination: MRI of the right knee without contrast HISTORY: History of right knee pain COMPARISON: None available Technique: Multiplanar, multisequence MR imaging of the right knee was performed without contrast. FINDINGS: The anterior cruciate ligament, posterior cruciate ligament appears intact. There is blunting of the junction of the anterior horn and body of the medial meniscus likely a small tear. The lateral menisc us appears intact. The medial collateral ligament appears intact. Lateral collateral ligamentous comp rambo including the fibular collateral ligament, biceps femoris tendon, popliteus tendon appears intact . The extensor mechanism is intact. Small knee joint effusion. The medial, lateral retinaculum appears intact. There is a multiloculated cystic structure identified posterior to the lateral femoral condyle at the attachment of the lateral head of the gastrocnemius tendon measuring 1.3 cm probably a small ganglion cyst. Mild superficial fraying of cartilage identif ied in the medial, lateral compartments with deep fissuring of cartilage identified in the patellofe moral compartment. Mild joint space loss identified in medial, lateral, patellofemoral compartments. IMPRESSION: 1. Blunting of the junction of the anterior horn and body of the medial meniscus likely a small tear . 2. Small knee joint effusion. 3. Small ganglion cyst identified posterior to the lateral femoral condyle at the attachment of the lateral head of the gastrocnemius tendon. 4. Grade II chondromalacia medial, lateral, patellofemoral compartments. Electronically signed by: Maximiliano Boyel MD (05/28/2020 2:16 PM) [id number]
== END ==
LOC: KCIC MRI 08:27
PROVIDERS: ATTEND Orthopaedic Surgery
DX: M25.461 Effusion, right knee (principal); M67.461 Ganglion, right knee; M22.41 Chondromalacia patellae, right knee
CPT/HCPCS: 73721

== ENCOUNTER → 2021-09-20 | Outpatient (CLI) | payer BC ==
[~2021-09-20] MED LIST changes: -OMEP40CA45; +OMEP40CA7
--- NOTE | 2021-09-20 10:49 | KCIC ---
EXAM: XR EXAM OF ANKLE_LEFT 3V 09/20/2021 10:24 AM CLINICAL INDICATION: Generalized left ankle pain, rolled ankle yesterday COMPARISON: None TECHNIQUE: AP, oblique, and lateral views of the left ankle FINDINGS: Possible small linear osseous flake at the lateral talar process. No other fracture. Align ment is normal. Ankle mortise is symmetric and talar dome is intact. There is mild diffuse soft tissu e swelling. There are vascular calcifications. IMPRESSION: 1. Possible small avulsion fracture at the lateral talar process. 2. Diffuse soft tissue swelling. Electronically signed by: Alena Enriquez MD (09/20/2021 10:46 AM) [id number]
== END ==
LOC: KCIC 10:20
PROVIDERS: ATTEND Emergency Medicine
DX: M79.89 Other specified soft tissue disorders (principal); M25.572 Pain in left ankle and joints of left foot
CPT/HCPCS: 73610